=== PATIENT | male | born 1970 | race Caucasian/White ===

== ENCOUNTER → 2017-10-19 | Outpatient (CLI) | payer OTHER ==
[~2017-10-19] MED LIST: GADAVIST IV PRN
--- NOTE | 2017-10-19 10:51 | DIAGNOSTIC IMAGING REPORT ---
MRI OF THE BRAIN WITHOUT AND WITH IV CONTRAST CLINICAL HISTORY: Memory loss. Lyme disease. COMPARISON STUDY: No previous studies for comparison. TECHNIQUE: Utilizing a 1.5 Sonal magnet and dedicated coil, multiplanar, multiecho imaging of the brain was performed pre and postcontrast administration. IV administration of 6.7 mL of Gadavist contrast was uneventful. FINDINGS: There are no foci of restricted diffusion. No acute intracranial hemorrhage, midline shift or mass effect is present. Brain volume is normal. Ventricular system is normal. Basilar cisterns are patent. There are no extra-axial collections. Flow-voids for the major intracranial vessels are present. There is no intracranial mass or pathologic enhancement. There are multiple small white matter T2 hypertense foci. Calvarial signal is maintained. There is no fluid within the mastoid air cells. Orbits are unremarkable. Sinuses are clear. IMPRESSION: 1. No acute intracranial findings. 2. No intracranial mass or pathologic enhancement. 3. Multiple small white matter T2 hyperintense foci which are nonspecific although the appearance is not highly suggestive of a demyelinating disease. Differential constrictions include small vessel disease, sequela of migraine headaches or atypical appearance of demyelinating disease. Electronically signed by: Brandyn Faulkner M.D. 10/19/2017 10:49 AM Dictated Date/Time: 10/19/2017 10:45 AM
== END | disposition home or self-care (01) ==
LOC: C.MRIBC 09:57
PROVIDERS: ATTEND Psychiatry & Neurology Neurology
DX: R41.3 Other amnesia (principal); Z86.19 Personal history of other infectious and parasitic diseases